=== PATIENT | female | born 1995 | race Caucasian/White ===

== ENCOUNTER 2022-03-20 15:41 | Emergency (ER) | payer SELFPAY ==
[~2022-03-20] VITALS: Ht 160 cm; Wt 59.0 kg
[2022-03-20] MEDS ORDERED: AMOX-430 PO (15:57)
[2022-03-20] MEDS ORDERED: AMOXICILLIN-CLAVUL 875-125MG TABLET PO ONE (16:00)
[2022-03-20] MEDS ORDERED: AMOXICILLIN-CLAVUL 875-125MG TABLET ONE (16:00)
--- NOTE | 2022-03-20 16:06 | NUR ---
PT WAS EVALUATED BY DR BAIRES. PT WAS D/C'd TO HOME. D/C INSTRUCTIONS GIVEN TO THE PT BY DR BAIRES.
[2022-03-20 16:07] VITALS: BP 128/68
== END 2022-03-20 16:27 | disposition home or self-care (01) ==
LOC: ER 15:50
DX: S01.432A Puncture wound without foreign body of left cheek and temporomandibular area, initial encounter (principal); W54.0XXA Bitten by dog, initial encounter; Y93.F9 Activity, other caregiving; Y92.531 Health care provider office as the place of occurrence of the external cause; Y99.0 Civilian activity done for income or pay
CPT/HCPCS: A4663